=== PATIENT | male | born 1960 | race Caucasian/White ===

== ENCOUNTER → 2019-07-10 | Outpatient (CLI) | payer SELFPAY | LOC: COL.RAD 13:07 | DX: R31.9 Hematuria, unspecified (principal) ==

== ENCOUNTER 2019-07-12 10:34 | Emergency (ER) | payer SELFPAY ==
[~2019-07-12] VITALS: Ht 182.9 cm; Wt 70.0 kg
[2019-07-12 12:34] LABS: COLLECTION METHOD CLEAN CATCH
[2019-07-12 12:50] LABS: BASO % 0.5 % (0.0-2.0); EOS % 0.1 % (0-4.0); GRAN # 7.4 (1.4-6.5); GRAN % 84.4 % (42.2-75.2); LYMPH # 0.7 (1.2-3.4); LYMPH % 8.5 % (20.0-51.0); MEAN CELL VOLUME 89 fl (80.0-100.0); MEAN CORPUSCULAR HGB CONC 31 g/dl (33.0-37.0); MEAN PLATELET VOLUME 9.9 fl (7.4-10.4); MONO # 0.5 (0.1-0.6); MONO % 6.2 % (1.7-9.3); PLATELET COUNT 123 K/mm3 (130-400); RED BLOOD COUNT 2.56 M/mm3 (4.20-5.60); REDCELL DISTRIBUTION WIDTH-CV 16.9 % (11.5-14.5)
[2019-07-12 12:51] LABS: PROTHROMBIN TIME 11.9 SECONDS (9.7-12.8)
[2019-07-12 12:54] LABS: HEMATOCRIT 22.8 % (42.0-52.0); MEAN CORPUSCULAR HEMOGLOBIN 27 pg (27.0-31.0); PARTIAL THROMBOPLASTIN TIME 28.1 SECONDS (26.0-37.0)
[2019-07-12 13:01] LABS: ALBUMIN 3.6 gm/dL (3.5-5.0); BILIRUBIN,TOTAL 0.7 mg/dL (0.0-1.0); C-REACTIVE PROTEIN 6.3 mg/dL (0.0-0.9); CALCIUM 9.1 mg/dL (8.4-10.2); CREATININE, serum 3.61 (0.66-1.25); POTASSIUM 4.3 mmol/L (3.4-5.0); TOTAL PROTEIN 7.6 gm/dL (6.4-8.2)
[2019-07-12 13:07] LABS: AMORPHOUS CRYSTAL Present /uL; MUCOUS Present /lpf; PH 5 (5-8); SQUAMOUS EPITHELIAL 0-2 /hpf; URINE APPEARANCE Cloudy; URINE BACTERIA Rare /hpf; URINE BILIRUBIN Negative (NEGATIVE); URINE BLOOD 3+ (NEGATIVE); URINE COLOR Yellow; URINE GLUCOSE Negative (NEGATIVE); URINE KETONE Negative (NEGATIVE); URINE LEUKOCYTE ESTERASE Negative (NEGATIVE); URINE NITRATE Negative (NEGATIVE); URINE PROTEIN(semi-quant) 1+ (NEGATIVE); URINE RBC >50 /hpf; URINE UROBILINOGEN Negative (NEGATIVE)
[2019-07-12 13:13] LABS: TROPONIN-I 0.137 ng/mL (0.000-0.035)
[2019-07-12 14:27] LABS: CREATINE KINASE < 20 U/L (55-170)
[2019-07-12 15:37] VITALS: BP 135/70; PULSE 102; TEMP 98
== END 2019-07-12 15:50 | disposition short-term general hospital (02) ==
LOC: COL.ER 10:34
PROVIDERS: Emergency Medicine
DX: N18.9 Chronic kidney disease, unspecified (principal); D63.1 Anemia in chronic kidney disease; D69.6 Thrombocytopenia, unspecified; R79.89 Other specified abnormal findings of blood chemistry
CPT/HCPCS: J0696; J7030

== ENCOUNTER 2019-08-11 18:22 | Outpatient (RCR) | payer OTHER ==
[2019-08-02 08:18] VITALS: BP 158/72; PULSE 72; TEMP 98.2
--- NOTE | 2019-08-02 08:30 | NUR ---
PICC intact right upper arm with moderate amount of dried reddish drainage noted. with sterile technique right upper arm PICC dressing change done with insertion site cleansed with chloraprep x 1, chlorhexidine impregnated disk applied, skin prep, stat lock, and tegaderm applied. no signs or symptoms of IV complications noted. no concerns voiced. will continue to monitor.
[2019-08-02 19:05] VITALS: BP 175/81; PULSE 76; TEMP 97.5
[2019-08-03 07:38] VITALS: BP 162/77; PULSE 71; TEMP 97.9
[2019-08-03 19:04] VITALS: BP 164/77; PULSE 75; TEMP 98.1
[2019-08-04 08:23] VITALS: BP 168/77; PULSE 68; TEMP 98
[2019-08-05 07:56] VITALS: BP 164/84; PULSE 69; TEMP 97.9
[2019-08-06 07:38] VITALS: BP 159/84; PULSE 64; TEMP 98.4
[2019-08-06 19:15] VITALS: BP 145/71; PULSE 69; TEMP 98.2
[2019-08-06 20:26] LABS: MEAN CELL VOLUME 93 fl (80.0-100.0); MEAN CORPUSCULAR HGB CONC 31 g/dl (33.0-37.0); MEAN PLATELET VOLUME 10.4 fl (7.4-10.4); PLATELET COUNT 189 K/mm3 (130-400); RED BLOOD COUNT 3.03 M/mm3 (4.20-5.60); REDCELL DISTRIBUTION WIDTH-CV 16.7 % (11.5-14.5)
[2019-08-06 20:29] LABS: HEMATOCRIT 28.2 % (42.0-52.0); HEMOGLOBIN 8.7 g/dl (13.5-18.0); MEAN CORPUSCULAR HEMOGLOBIN 29 pg (27.0-31.0)
[2019-08-06 20:53] LABS: ALBUMIN 3.4 gm/dL (3.5-5.0); BILIRUBIN,TOTAL 0.4 mg/dL (0.0-1.0); C-REACTIVE PROTEIN 3.2 mg/dL (0.0-0.9); CALCIUM 8.4 mg/dL (8.4-10.2); CREATININE, serum 1.77 (0.66-1.25); POTASSIUM 3.5 mmol/L (3.4-5.0); TOTAL PROTEIN 6.8 gm/dL (6.4-8.2)
[2019-08-07 08:15] VITALS: BP 169/79; PULSE 68; TEMP 97.9
[2019-08-07 18:56] VITALS: BP 160/73; PULSE 71; TEMP 98.3
[2019-08-07 19:30] VITALS: BP 160/73; PULSE 71; TEMP 98.3
[2019-08-08 07:49] VITALS: BP 149/77; PULSE 73; TEMP 98.7
[2019-08-08 18:41] VITALS: BP 165/77; PULSE 75; TEMP 98.3
[2019-08-09 07:53] VITALS: BP 150/69; PULSE 71; TEMP 98.2
[2019-08-09 18:30] VITALS: BP 142/65; PULSE 79; TEMP 98.5
[2019-08-10 07:42] VITALS: BP 153/70; PULSE 65; TEMP 98.1
[2019-08-10 18:26] VITALS: BP 148/74; PULSE 73
[~2019-08-11] VITALS: Ht 182.9 cm; Wt 67.2 kg
[2019-08-11 08:28] VITALS: BP 167/81; PULSE 71; TEMP 98.6
[~2019-08-11 18:22] MED LIST: ASPIRIN 81M81 MG/TA2 PO; COLACE 100100 MG/CAP PO; COUMADIN 1MG1 MG/TAB PO; LIPITOR 40MG TA40 MG PO; TOPROL XL 25MG25 MG PO; ULTRAM 50MG TAB50 MG PO
[2019-08-12 09:06] VITALS: BP 145/72; PULSE 74; TEMP 98.9
[2019-08-13 07:30] VITALS: BP 127/78; PULSE 66; TEMP 98.3
[2019-08-13 08:13] LABS: MEAN CELL VOLUME 92 fl (80.0-100.0); MEAN CORPUSCULAR HGB CONC 32 g/dl (33.0-37.0); MEAN PLATELET VOLUME 9.3 fl (7.4-10.4); PLATELET COUNT 185 K/mm3 (130-400); RED BLOOD COUNT 3.29 M/mm3 (4.20-5.60); REDCELL DISTRIBUTION WIDTH-CV 15.2 % (11.5-14.5)
[2019-08-13 08:14] LABS: HEMATOCRIT 30.2 % (42.0-52.0); HEMOGLOBIN 9.5 g/dl (13.5-18.0); MEAN CORPUSCULAR HEMOGLOBIN 29 pg (27.0-31.0)
[2019-08-13 08:17] LABS: ALBUMIN 3.8 gm/dL (3.5-5.0); BILIRUBIN,TOTAL 0.5 mg/dL (0.0-1.0); C-REACTIVE PROTEIN 8.4 mg/dL (0.0-0.9); CALCIUM 9.2 mg/dL (8.4-10.2); CREATININE, serum 1.72 (0.66-1.25); POTASSIUM 4.3 mmol/L (3.4-5.0); TOTAL PROTEIN 7.5 gm/dL (6.4-8.2)
[2019-08-13 18:20] VITALS: BP 143/79; PULSE 78; TEMP 98.9
[2019-08-14 07:41] VITALS: BP 143/85; PULSE 74; TEMP 98.7
--- NOTE | 2019-08-14 08:00 | NUR ---
PICC intact right upper arm with sterile dressing change done with insertion site cleansed with chloraprep x 1, chlohexidine impregnated disk applied, skin prep, stat lock, and tegaderm applied. no signs or symptoms of IV complications noted. no concerns voiced. re-wrapped with gemma to protect catheter.
[2019-08-14 18:31] VITALS: BP 154/83; PULSE 74; TEMP 98.4
[2019-08-15 07:56] VITALS: BP 152/88; PULSE 80; TEMP 98.5
--- NOTE | 2019-08-15 07:57 | NUR ---
Per pt report his back pain has worsened recently.Encouraged pt to call primary care physician to report.Per pt he has follow up sceduled for Tuesday.Patient agrees to call and see if he can get a sooner apt.
[2019-08-15 18:34] VITALS: BP 153/90; PULSE 100; TEMP 97.7
[2019-08-16 07:36] VITALS: BP 154/69; PULSE 78; TEMP 98
[2019-08-16 18:35] VITALS: BP 152/80; PULSE 72; TEMP 98.4
[2019-08-17 07:49] VITALS: BP 158/80; PULSE 72; TEMP 98.5
[2019-08-17 18:32] VITALS: BP 156/92; PULSE 73; TEMP 98.7
[2019-08-18 07:30] VITALS: BP 156/86; PULSE 76; TEMP 98
[2019-08-19 08:40] VITALS: BP 158/82; PULSE 70; TEMP 97.8
[2019-08-20 07:54] LABS: MEAN CELL VOLUME 92 fl (80.0-100.0); MEAN CORPUSCULAR HGB CONC 30 g/dl (33.0-37.0); MEAN PLATELET VOLUME 8.3 fl (7.4-10.4); PLATELET COUNT 295 K/mm3 (130-400); RED BLOOD COUNT 3.27 M/mm3 (4.20-5.60); REDCELL DISTRIBUTION WIDTH-CV 14.5 % (11.5-14.5)
[2019-08-20 08:01] LABS: HEMATOCRIT 30.1 % (42.0-52.0); HEMOGLOBIN 9.1 g/dl (13.5-18.0); MEAN CORPUSCULAR HEMOGLOBIN 28 pg (27.0-31.0)
[2019-08-20 08:21] VITALS: BP 168/86; PULSE 73; TEMP 97.8
[2019-08-20 08:22] LABS: ALANINE AMINOTRANSFERASE < 6 U/L (21-72); ALBUMIN 3.9 gm/dL (3.5-5.0); ALKALINE PHOSPHATASE 119 U/L (50-136); ANION GAP 12 mmol/L (7-16); AST,SGOT 28 U/L (15-37); BILIRUBIN,TOTAL 0.4 mg/dL (0.0-1.0); BLOOD UREA NITROGEN 28 mg/dL (9-20); C-REACTIVE PROTEIN 3.4 mg/dL (0.0-0.9); CALCIUM 9.6 mg/dL (8.4-10.2); CARBON DIOXIDE 26 mmol/L (22-30); CHLORIDE 102 mmol/L (98-107); CREATININE, serum 1.47 (0.66-1.25); GLUCOSE 107 mg/dL (74-106); POTASSIUM 4.6 mmol/L (3.4-5.0); SODIUM 140 mmol/L (137-145); TOTAL PROTEIN 7.5 gm/dL (6.4-8.2)
[2019-08-20 18:45] VITALS: BP 150/83; PULSE 82; TEMP 98.7
[2019-08-21 08:21] VITALS: BP 148/87; PULSE 80; TEMP 98.6
[2019-08-21 18:43] VITALS: BP 157/88; PULSE 83; TEMP 97.9
[2019-08-22 09:09] VITALS: BP 157/84; PULSE 96; TEMP 97
[2019-08-22 18:41] VITALS: BP 185/78; PULSE 67; TEMP 97.6
[2019-08-23 07:30] VITALS: BP 133/81; PULSE 71; TEMP 97.8
[2019-08-23 18:53] VITALS: BP 128/70; PULSE 77; TEMP 98
== END 2019-08-23 20:17 | disposition home or self-care (01) ==
LOC: EUO 08-12 07:30
PROVIDERS: Family Medicine
DX: I33.0 Acute and subacute infective endocarditis (principal)
CPT/HCPCS: J0696; J1644